=== PATIENT | female | born 1995 | race African-American/Black ===

== ENCOUNTER 2017-09-20 15:08 | Emergency (ER) | payer OTHER ==
[~2017-09-20] VITALS: Ht 162.6 cm; Wt 52.8 kg
[2017-09-20 15:27] VITALS: TEMP 36.7; Ht 162.6 cm; Wt 52.8 kg
[2017-09-20] MEDS ORDERED: PROPARACAINE HCL 0.5% OP SOLN 15 ML BTL ONE (15:50)
[2017-09-20] MEDS ORDERED: CIPR0.3S OP (16:06)
[2017-09-20 16:49] VITALS: BP 137/90; PULSE 87; O2SAT 99
--- NOTE | 2017-09-21 23:05 | EMERGENCY ROOM VISIT NOTE ---
ED Visit Note First contact with patient: 15:34 Chief Complaint: Right eye pain. History of Present Illness:'s José 21-year-old female who ambulates into the ED complaining of right eye pain. Patient reports on Wednesday night, 3 nights ago, she reports she was out drinking and when she awoke the next morning she started experiencing right eye pain. She believes she might of struck the eye on the toilet but is unsure. Currently she is complaining of a stinging scratchy sensation under the upper eyelid of the right eye. She rates this discomfort 3/10. The pain is nonradiating. She has not identified any aggravating or alleviating factors related to the pain. She has not taken any medication for pain prior to arrival at the hospital. Associated with her pain she reports she has noted redness of the sclera, tearing and this morning she noted some mild blurry vision of the left eye. She denies fevers, chills, sweats, skin eruptions, skin color changes, headache , dizziness, lightheadedness, overall decrease in vision, light sensitivity, all abnormal neurological symptoms, neck pain, nausea/vomiting. Review of Systems: As noted above in history of present illness. 8 body systems were reviewed and found to be negative as noted above. Past Medical History: Unspecified skin disorder, bronchitis, asthma. Current Medications: Patient denies. Allergies to Medications: Penicillin. Social History: Patient is currently employed; she feels safe in her home environment; she denies tobacco use and admits to alcohol use. Physical Examination: Vital Signs: Date Time Temp Pulse Resp B/P (MAP) Pulse Ox O2 Delivery O2 Flow Rate FiO2 09/20/17 16:49 87 18 137/90 99 09/20/17 15:27 36.7 94 18 142/100 100 Room Air GENERAL: 21-year-old female in mild distress due to pain, nontoxic-appearing, afebrile and hemodynamically stable. NEUROLOGICAL: Awake, alert and oriented to person, place and time. Answering questions appropriately and following commands. Normal gait. Good hand eye coordination. SKIN: Warm, dry and pink. HEENT: Atraumatic and normocephalic. Skull: No bony deformity, bony crepitus, swelling or ecchymosis. No raccoon's eyes or kang signs. No drainage in the ears of the nares; no hemotympanum. Face: No bony deformity or crepitus. There is mild swelling of the upper and lower eyelid on the right without erythema. There is no bony tenderness of the orbit or the soft tissues. PERRLA. Eomi without nystagmus. No foreign bodies noted under the eyelids are embedded in the cornea. Anterior chamber is clear. Funduscopic examination shows a small uptake of the dye consistent with an abrasion at the 11 o'clock position. Sclera injected and conjunctiva pink without drainage. Visual Acuity : Right 20/25 without correction, Left 20/20 without correction area ED Course: Patient is assessed as noted above. Patient's medication list was reviewed. Alcaine was used to anesthetize the eye for slit lamp examination with staining. Patient was educated about today's findings and instructed on her treatment plan ; she verbalized understanding and agreement with this plan. Clinical Impression: Right corneal abrasion. Disposition: Patient discharged home in stable condition; prior to departure she was reassessed and subjectively reported she was feeling slightly better and rated her discomfort 2/10. Plan: Patient was encouraged to alternate ibuprofen and acetaminophen every 3 hours for persistent pain. Patient was prescribed Ciloxan ophthalmic drops encouraged use 2 drops in her right eye every 4 hours while awake for 5 days. Patient was encouraged to follow-up with ophthalmology or return to the ED in 36 -48 hours for recheck. Patient was encouraged return ED sooner for worsening vision changes, worsening pain, fevers, headaches, vomiting or any new/concerning symptoms.
== END 2017-09-20 16:53 | disposition home or self-care (01) ==
LOC: C.EDB 15:10 → C.EDD 16:53
DX: S05.01XA Injury of conjunctiva and corneal abrasion without foreign body, right eye, initial encounter (principal); X58.XXXA Exposure to other specified factors, initial encounter; Y92.9 Unspecified place or not applicable; L98.9 Disorder of the skin and subcutaneous tissue, unspecified; J45.909 Unspecified asthma, uncomplicated